=== PATIENT | female | born 1965 | race American Indian/Alaskan Native ===

== ENCOUNTER 2017-01-02 14:08 | Emergency (ER) | payer OTHER ==
--- NOTE | 2017-01-02 16:10 | XRay Report ---
Right knee 2 views. Findings: Knee pain after fall. Findings: There is no evidence of fracture or other acute findings. There is mild narrowing of the joint space. Bony mineralization is normal. Impression: Mild osteoarthritis with no acute findings.
--- NOTE | 2017-01-02 18:28 | Emergency Department Report ---
ED Extremity Problem HPI - General Chief complaint: Fall Stated complaint: FELL/RT KNEE PAIN Time Seen by Provider: 01/02/17 18:14 Source: patient Mode of arrival: Wheelchair Limitations: No Limitations - History of Present Illness Initial comments: PT c/o R knee pain sp fall at work. 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 PT states her point of impact was the R knee. PT states she had R knee surgery for "torn ligament" on 10-11-16. PT stats she has not ambulated since fall. PT denies any other injuries from fall MD Complaint: joint paint -: Sudden, hour(s) Time: 13:15 Location: right, knee Severity scale (0 -10): 10 Consistency: constant Improves with: nothing (no improvement with rest or elevated - no medication taken ) Worsens with: weight bearing, walking, palpation Associated Symptoms: denies other symptoms - Related Data Previous Rx's Medication Instructions Recorded Last Taken Type HYDROcodone/APAP 5-325 [[place] 1 each PO Q6HR PRN #10 tablet 01/02/17 Unknown Rx 5/325] Ibuprofen [Motrin] 600 mg PO Q8H PRN #15 tablet 01/02/17 Unknown Rx Allergies Allergy/AdvReac Type Severity Reaction Status Date / Time No Known Allergies Allergy Verified 06/18/14 22:26 ED Review of Systems ROS: Stated complaint: FELL/RT KNEE PAIN Other details as noted in HPI Comment: All other systems reviewed and negative Cardiovascular: denies: chest pain Gastrointestinal: denies: abdominal pain Musculoskeletal: as per HPI Neurological: abnormal gait (due to R knee pain ). denies: headache ED Past Medical Hx - Past Medical History Previous Medical History?: Yes Hx Hypertension: No Hx CVA: No Hx Heart Attack/AMI: No Hx Congestive Heart Failure: No Hx Diabetes: No Hx Deep Vein Thrombosis: No Hx Pulmonary Embolism: No Hx GERD: No Hx Liver Disease: No Hx Renal Disease: No Hx Sickle Cell Disease: No Hx Arthritis: No Hx Headaches / Migraines: No Hx Seizures: No Hx Kidney Stones: No Hx Psychiatric Treatment: No Hx Asthma: No Hx COPD: No Hx Tuberculosis: No Hx Dementia: No Hx HIV: No Additional medical history: Right knee pain - Surgical History Past Surgical History?: Yes Hx Coronary Stent: No Hx Open Heart Surgery: No Hx Pacemaker: No Hx Internal Defibrillator: No Hx Cholecystectomy: No Hx Appendectomy: No Hx Breast Surgery: No Additional Surgical History: hysterectomy, Right knee arthroscopy - Social History Smoking Status: Never Smoker Substance Use Type: Alcohol - Medications Home Medications: Home Medications Medication Instructions Recorded Confirmed Last Taken Type HYDROcodone/APAP 5-325 [[place] 1 each PO Q6HR PRN #10 tablet 01/02/17 Unknown Rx 5/325] Ibuprofen [Motrin] 600 mg PO Q8H PRN #15 tablet 01/02/17 Unknown Rx ED Physical Exam - General Limitations: No Limitations General appearance: alert, in no apparent distress, obese - Head Head exam: Present: atraumatic, normocephalic - Eye Eye exam: Present: normal appearance, EOMI. Absent: conjunctival injection - ENT ENT exam: Present: normal exam - Neck Neck exam: Present: normal inspection, full ROM - Respiratory Respiratory exam: Absent: respiratory distress, accessory muscle use - Cardiovascular Cardiovascular Exam: Present: regular rate, normal rhythm - GI/Abdominal GI/Abdominal exam: Present: soft, other (obese ). Absent: tenderness - Extremities Exam Extremities exam: Present: normal inspection, full ROM, tenderness, normal capillary refill. Absent: pedal edema, calf tenderness - Expanded Lower Extremity Exam Right Knee exam: Present: normal inspection (3 scars to ant R knee, no signs of secondary infection), full ROM, tenderness (ant knee ), crepidus. Absent: swelling, abrasion, laceration, ecchymosis Ankle exam: Present: normal inspection. Absent: tenderness, swelling - Back Exam Back exam: Present: normal inspection, full ROM - Neurological Exam Neurological exam: Present: alert, oriented X3 - Psychiatric Psychiatric exam: Present: normal affect, normal mood - Skin Skin exam: Present: warm, dry, intact, normal color ED Course Vital Signs 01/02/17 15:01 Temperature 97.5 F L Pulse Rate 64 Respiratory 20 Rate Blood Pressure 159/85 O2 Sat by Pulse 100 Oximetry - Reevaluation(s) Reevaluation #1: 01/02/17 18:33 PT is aware of XR result. PT aware she will need to follow up with PCP for bp recheck. PT has no questions at this time. Reevaluation #2: 01/02/17 19:33 PT resting in stretcher. PT in R knee immobilizer. PT NVI - Pulse Oximetry Interpretation Digit-Finger Initial Pulse Oximetry Readin Actions Taken: none ED Medical Decision Making - Radiology Data Radiology results: report reviewed R knee XR- Mild OA, NAP - Differential Diagnosis fracture, contusion, strain Critical care attestation.: If time is entered above; I have spent that time in minutes in the direct care of this critically ill patient, excluding procedure time. ED Disposition Clinical Impression: Elevated blood pressure Fall from slipping on slippery surface Qualifiers: Encounter type: initial encounter Qualified Code(s): W01.0XXA - Fall on same level from slipping, tripping and stumbling without subsequent striking against object, initial encounter Right knee pain Qualifiers: Chronicity: acute Qualified Code(s): M25.561 - Pain in right knee Disposition: DISCHARGED TO HOME OR SELFCARE Is pt being admited?: No Does the pt Need Aspirin: No Condition: Stable Instructions: Knee Sprain (ED), Knee Pain (ED), RICE Therapy (ED), Knee Immobilizer (ED) Additional Instructions: No driving or ETOH after [place] Follow up with PMD for repeat XR Prescriptions: HYDROcodone/APAP 5-325 [[place] 5/325] 1 each PO Q6HR PRN #10 tablet PRN Reason: Pain Ibuprofen [Motrin] 600 mg PO Q8H PRN #15 tablet PRN Reason: Pain Referrals: PRIMARY CARE, [Primary Care Provider] - 3-5 Days TRISTEN VANCE MD [Staff Physician] - 3-5 Days OZZY ANNA MD [Staff Physician] - 3-5 Days [facility] [Outside] - 3-5 Days [facility] [Outside] - 3-5 Days Forms: Work/School Release Form(ED) Time of Disposition: 18:32
[2017-01-02] MEDS ORDERED: MOTRIN PO ONE (18:31)
[2017-01-02] MEDS ORDERED: NORCO 5/325 PO ONE (18:31)
[2017-01-02 19:38] VITALS: BP 142/84
== END 2017-01-02 19:36 | disposition home or self-care (01) ==
LOC: ED 14:08
DX: M25.561 Pain in right knee (principal); W01.0XXA Fall on same level from slipping, tripping and stumbling without subsequent striking against object, initial encounter; Y93.89 Activity, other specified; Y99.8 Other external cause status; Y92.89 Other specified places as the place of occurrence of the external cause

== ENCOUNTER 2018-04-24 16:52 | Observation (INO) | payer OTHER ==
[2018-04-24] MEDS ORDERED: NITROSTAT SL ONE (17:05)
[2018-04-24] MEDS ORDERED: NACL 0.9% 500 ML 500 ML IV ONE (17:06)
[2018-04-24] MEDS ORDERED: SUBLIMAZE IV ONE (17:06)
--- NOTE | 2018-04-24 17:07 | Emergency Department Report ---
<VIRGINIA JEAN - Last Filed: 04/24/18 20:00> ED Chest Pain HPI - General Chief Complaint: Chest Pain Stated Complaint: CHEST PAIN Time Seen by Provider: 04/24/18 16:57 Source: patient, EMS (ems notes not available at time of chart dictation), RN notes reviewed Mode of arrival: Stretcher Limitations: Physical Limitation - History of Present Illness Initial Comments: This is a 52-year-old female who is not known to this provider previously. Her primary care doctor is Dr. Mejia reports a past medical history of hypertension. She presents to the ER with a complaint of left-sided chest pain that radiates to the back. It is associated with syncope. Currently, her chest pain is improved. She denies headache, neck pain, abdominal pain, leg pain, leg swelling, hematemesis, bright red blood per rectum. She denies DVT, pulmonary embolus risk factors. MD Complaint: chest pain -: Sudden Onset: during rest Pain Location: left chest Pain Radiation: back Severity: moderate Quality: aching Consistency: intermittent Improves With: nothing Worsens With: nothing Other Symptoms: syncope Aspirin use within the Past 7 Days: (1) Yes - Related Data On Oral Contraceptives: No Home Medications Medication Instructions Recorded Confirmed Last Taken Levothyroxine [Synthroid] 100 mcg PO QAM 04/24/18 04/24/18 04/24/18 Meloxicam 15 mg PO DAILY PRN 04/24/18 04/24/18 04/24/18 Allergies Allergy/AdvReac Type Severity Reaction Status Date / Time No Known Allergies Allergy Verified 06/18/14 22:26 Heart Score - HEART Score History: Moderately suspicious EKG: Non-specific Age: 45-65 Risk factors: 1-2 risk factors Troponin: < normal limit HEART Score: 4 - Critical Actions Critical Actions: 4-6 pts:12-16.6% risk of adverse cardiac event. Should be admitted ED Review of Systems ROS: Stated complaint: CHEST PAIN Other details as noted in HPI Comment: All other systems reviewed and negative Constitutional: malaise Eyes: denies: vision change ENT: denies: epistaxis Respiratory: denies: cough Cardiovascular: chest pain, syncope Gastrointestinal: denies: abdominal pain Psychiatric: anxiety ED Past Medical Hx - Past Medical History Hx Hypertension: No Hx CVA: No Hx Heart Attack/AMI: No Hx Congestive Heart Failure: No Hx Diabetes: No Hx Deep Vein Thrombosis: No Hx Pulmonary Embolism: No Hx GERD: No Hx Liver Disease: No Hx Renal Disease: No Hx Sickle Cell Disease: No Hx Arthritis: No Hx Headaches / Migraines: No Hx Seizures: No Hx Kidney Stones: No Hx Psychiatric Treatment: No Hx Asthma: No Hx COPD: No Hx Tuberculosis: No Hx Dementia: No Hx HIV: No Additional medical history: Right knee pain - Surgical History Hx Coronary Stent: No Hx Open Heart Surgery: No Hx Pacemaker: No Hx Internal Defibrillator: No Hx Cholecystectomy: No Hx Appendectomy: No Hx Breast Surgery: No Additional Surgical History: hysterectomy, Right knee arthroscopy - Social History Smoking Status: Never Smoker Substance Use Type: Alcohol - Medications Home Medications: Home Medications Medication Instructions Recorded Confirmed Last Taken Type Levothyroxine [Synthroid] 100 mcg PO QAM 04/24/18 04/24/18 04/24/18 History Meloxicam 15 mg PO DAILY PRN 04/24/18 04/24/18 04/24/18 History ED Physical Exam - General General appearance: alert, in no apparent distress, obese - Head Head exam: Present: atraumatic, normocephalic - Eye Eye exam: Present: normal appearance, EOMI. Absent: nystagmus - ENT ENT exam: Present: normal exam, normal orophraynx, mucous membranes moist, normal external ear exam - Neck Neck exam: Present: normal inspection - Respiratory Respiratory exam: Present: normal lung sounds bilaterally. Absent: respiratory distress - Cardiovascular Cardiovascular Exam: Present: regular rate, normal rhythm, normal heart sounds. Absent: bradycardia, tachycardia, irregular rhythm, systolic murmur, diastolic murmur, rubs, gallop - GI/Abdominal GI/Abdominal exam: Present: soft. Absent: distended, tenderness, guarding, rebound, rigid, pulsatile mass - Extremities Exam Extremities exam: Present: normal inspection, full ROM, normal capillary refill , other (2+ pulses noted in the bilateral upper, lower extremities. Compartments soft. No long bony tenderness. The pelvis is stable.). Absent: tenderness, pedal edema, joint swelling, calf tenderness - Back Exam Back exam: Present: normal inspection, full ROM. Absent: tenderness, CVA tenderness (R), paraspinal tenderness, vertebral tenderness - Neurological Exam Neurological exam: Present: alert, oriented X3, CN II-XII intact, other ( Extraocular movements intact. Tongue midline. No facial droop. Facial sensation intact to light touch in the V1, V2, V3 distribution bilaterally. 5 and 5 strength in 4 extremities.. Sensation is intact to light touch in 4 extremities.). Absent: motor sensory deficit - Psychiatric Psychiatric exam: Present: anxious - Skin Skin exam: Present: warm, dry, intact, normal color. Absent: rash ED Course Vital Signs 04/24/18 04/24/18 04/24/18 17:07 19:15 20:00 Temperature 98 F 98.3 F Pulse Rate 68 60 58 L Respiratory 17 14 13 Rate Blood Pressure 170/92 157/83 Blood Pressure 141/72 [Right] O2 Sat by Pulse 97 98 Oximetry 04/24/18 21:00 Temperature Pulse Rate 53 L Respiratory 11 L Rate Blood Pressure 136/73 Blood Pressure [Right] O2 Sat by Pulse Oximetry - Reevaluation(s) Reevaluation #1: 04/24/18 18:54 Differential diagnosis, including but not limited to: Intracranial hemorrhage, pulmonary embolus, dissection, acute coronary syndrome, arrhythmia, electrolyte derangement, structural cardiac disease Assessment and plan: 52-year-old female, she is clinically sober, with an NIH score of 0, with reported chest pain and syncope. As per verbal report from the nurse had an initial prehospital blood pressure in the 200s. She is currently in the 170s. The patient has equal pulses in the bilateral upper, lower extremities. Aortic disease is unlikely. Her negative d-dimer is appreciated, but given her clinical presentation of reported chest pain and syncope, I do not think the patient is suitable to be risk stratified by negative d-dimer by itself, and therefore we will obtain a CT scan of the chest. As we have not excluded intracranial hemorrhage, the patient is not safe for suitable for empiric systemic anticoagulation at this time. The patient will be admitted to the hospital after her initial diagnostics are back. Reevaluation #2: 04/24/18 20:[address] Caban to follow up on cta chest and ct head. he will contact hospitalist to admit. would give aspirin if ct head negative VIANNEY score - Vianney Score Age > 65: (0) No Aspirin use within the Past 7 Days: (1) Yes 3 or more CAD Risk Factors: (0) No 2 or more Angina events in past 24 hrs: (0) No Known CAD with more than 50% Stenosis: (0) No Elevated Cardiac Markers: (0) No ST Deviation Greater than 0.5mm: (0) No VIANNEY Score: 1 ED Medical Decision Making - Lab Data Result diagrams: 04/24/18 17:09 04/24/18 17:09 Vital Signs 04/24/18 17:07 Temperature 98 F Pulse Rate 68 Respiratory 17 Rate Blood Pressure 170/92 O2 Sat by Pulse 97 Oximetry Lab Results 04/24/18 04/24/18 04/24/18 Range/Units 17:09 17:09 17:09 WBC 5.5 (4.5-11.0) K/mm3 RBC 4.02 (3.65-5.03) M/mm3 Hgb 12.6 (10.1-14.3) gm/dl Hct 37.8 (30.3-42.9) % MCV 94 (79-97) fl MCH 31 (28-32) pg MCHC 33 (30-34) % RDW 12.4 L (13.2-15.2) % Plt Count 154 (140-440) K/mm3 Lymph % (Auto) 36.7 H (13.4-35.0) % Mccreary % (Auto) 6.6 (0.0-7.3) % Eos % (Auto) 2.2 (0.0-4.3) % Baso % (Auto) 0.8 (0.0-1.8) % Lymph # 2.0 (1.2-5.4) K/mm3 Mccreary # 0.4 (0.0-0.8) K/mm3 Eos # 0.1 (0.0-0.4) K/mm3 Baso # 0.0 (0.0-0.1) K/mm3 Seg Neutrophils % 53.7 (40.0-70.0) % Seg Neutrophils # 2.9 (1.8-7.7) K/mm3 PT 13.2 (12.2-14.9) Sec. INR 0.95 (0.87-1.13) APTT 28.1 (24.2-36.6) Sec. D-Dimer 146.27 (0-234) ng/mlDDU Sodium 140 (137-145) mmol/L Potassium 3.4 L (3.6-5.0) mmol/L Chloride 103.8 (98-107) mmol/L Carbon Dioxide 25 (22-30) mmol/L Anion Gap 15 mmol/L BUN 14 (7-17) mg/dL Creatinine 0.8 (0.7-1.2) mg/dL Estimated GFR > 60 ml/min BUN/Creatinine Ratio 18 % Glucose 130 H (65-100) mg/dL Calcium 8.8 (8.4-10.2) mg/dL Magnesium (1.7-2.3) mg/dL Total Bilirubin 0.30 (0.1-1.2) mg/dL AST 20 (5-40) units/L ALT 16 (7-56) units/L Alkaline Phosphatase 57 (35-129) units/L Troponin T < 0.010 (0.00-0.029) ng/mL Total Protein 7.1 (6.3-8.2) g/dL Albumin 3.8 L (3.9-5) g/dL Albumin/Globulin Ratio 1.2 % TSH (0.270-4.200) mlU/mL 04/24/18 04/24/18 Range/Units 17:09 17:09 WBC (4.5-11.0) K/mm3 RBC (3.65-5.03) M/mm3 Hgb (10.1-14.3) gm/dl Hct (30.3-42.9) % MCV (79-97) fl MCH (28-32) pg MCHC (30-34) % RDW (13.2-15.2) % Plt Count (140-440) K/mm3 Lymph % (Auto) (13.4-35.0) % Mccreary % (Auto) (0.0-7.3) % Eos % (Auto) (0.0-4.3) % Baso % (Auto) (0.0-1.8) % Lymph # (1.2-5.4) K/mm3 Mccreary # (0.0-0.8) K/mm3 Eos # (0.0-0.4) K/mm3 Baso # (0.0-0.1) K/mm3 Seg Neutrophils % (40.0-70.0) % Seg Neutrophils # (1.8-7.7) K/mm3 PT (12.2-14.9) Sec. INR (0.87-1.13) APTT (24.2-36.6) Sec. D-Dimer (0-234) ng/mlDDU Sodium (137-145) mmol/L Potassium (3.6-5.0) mmol/L Chloride (98-107) mmol/L Carbon Dioxide (22-30) mmol/L Anion Gap mmol/L BUN (7-17) mg/dL Creatinine (0.7-1.2) mg/dL Estimated GFR ml/min BUN/Creatinine Ratio % Glucose (65-100) mg/dL Calcium (8.4-10.2) mg/dL Magnesium 1.70 (1.7-2.3) mg/dL Total Bilirubin (0.1-1.2) mg/dL AST (5-40) units/L ALT (7-56) units/L Alkaline Phosphatase (35-129) units/L Troponin T (0.00-0.029) ng/mL Total Protein (6.3-8.2) g/dL Albumin (3.9-5) g/dL Albumin/Globulin Ratio % TSH 4.790 H (0.270-4.200) mlU/mL - EKG Data -: EKG Interpreted by Me EKG shows normal: sinus rhythm - EKG Data When compared to previous EKG there are: previous EKG unavailable 04/24/18 18:53 Sinus, 63 bpm, high left ventricular voltage/left ventricular hypertrophy, low voltage in the lateral leads, abnormal EKG, not a stemi, no prior for comparison. - Radiology Data Radiology results: image reviewed interpreted by me: X-ray of the chest, interpreted by me, no acute disease, cardiaomegaly. Critical care attestation.: If time is entered above; I have spent that time in minutes in the direct care of this critically ill patient, excluding procedure time. ED Disposition Clinical Impression: Syncope, Chest pain Disposition: OP ADMIT IP TO THIS HOSP Is pt being admited?: Yes Condition: Good Instructions: Chest Pain (ED), Syncope (ED) Referrals: PRIMARY CARE, [Primary Care Provider] - 3-5 Days <GWENDOLYN CABAN - Last Filed: 04/24/18 21:38> ED Medical Decision Making - Lab Data Result diagrams: 04/24/18 17:09 08/15/18 17:09 - Medical Decision Making I received this patient in sign out from Dr. Jean to follow up on the CT imaging. They are unremarkable for acute emergent pathology. Pt will be admitted for chest pain/syncope work up. ED Disposition Is pt being admited?: Yes Does the pt Need Aspirin: No
[2018-04-24 17:33] LABS: Basophils % (Auto) 0.8 % (0.0-1.8); Eosinophils # (Auto) 0.1 K/mm3 (0.0-0.4); Eosinophils % (Auto) 2.2 % (0.0-4.3); Hematocrit 37.8 % (30.3-42.9); Hemoglobin 12.6 gm/dl (10.1-14.3); Lymphocytes % (Auto) 36.7 % (13.4-35.0); Mean Corpuscular HGB Conc 33 % (30-34); Mean Corpuscular Hemoglobin 31 pg (28-32); Mean Corpuscular Volume 94 fl (79-97); Monocytes # (Auto) 0.4 K/mm3 (0.0-0.8); Monocytes % (Auto) 6.6 % (0.0-7.3); Platelet Count 154 K/mm3 (140-440); Red Blood Count 4.02 M/mm3 (3.65-5.03); Red Cell Distribution Width 12.4 % (13.2-15.2)
[2018-04-24 17:43] LABS: INR 0.95 (0.87-1.13); Partial Thromboplastin Time 28.1 Sec. (24.2-36.6)
[2018-04-24 17:57] LABS: Alanine Aminotransferase 16 units/L (7-56); Albumin 3.8 g/dL (3.9-5); BUN/Creatinine Ratio 18; Blood Urea Nitrogen 14 mg/dL (7-17); Calcium 8.8 mg/dL (8.4-10.2); Hemolysis Index 5
--- NOTE | 2018-04-24 20:07 | Cat Scan Report ---
FINAL REPORT EXAM: CT HEAD/BRAIN WO CON HISTORY: syncope TECHNIQUE: Axial noncontrast CT images of the brain were performed. Total exam DLP 920.48 mGy-cm Comparison: None FINDINGS: Mild cortical atrophy. Patchy periventricular white matter foci of low signal density most compatible with small vessel ischemic disease including in the anterior limb left internal capsule. Normal gonzalez-white differentiation. No midline shift or mass effect. Dysconjugate gaze. Right maxillary sinus mucosal thickening. Air bubbles are present along the superficial right globe. Orbital cones and apices are unremarkable. IMPRESSION: Cortical atrophy. Mild central atrophy. No acute transcortical infarct, bleed, or mass identified. Dysconjugate gaze. Air bubbles along the superficial globes, right greater than left. No intraconal gas. Mild right maxillary sinus mucosal thickening incompletely imaged.
--- NOTE | 2018-04-24 20:24 | XRay Report ---
FINAL REPORT EXAM: XR CHEST ROUTINE 2V HISTORY: Chest Pain TECHNIQUE: Two views of the chest Comparison: 01/14/2016 FINDINGS: Heart size is upper limits normal with mild left ventricular configuration. No pneumothorax. No focal infiltrate. Imaged axial skeleton is unremarkable. IMPRESSION: No acute cardiopulmonary disease.
--- NOTE | 2018-04-24 20:34 | Cat Scan Report ---
FINAL REPORT EXAM: CT ANGIO CHEST HISTORY: cp syncope TECHNIQUE: Enhanced CT of the chest at 1.25 mm axial intervals following a pulmonary embolism protocol. Coronal and sagittal imaging were also obtained. Coronal oblique MIP projections were obtained. Contrast: 100 ml of Omnipaque 350 given IV. PRIORS: None. FINDINGS: There is no evidence for pulmonary embolism in the main pulmonary artery, right and left pulmonary arteries or their major distributions. However, CT does not exclude distal pulmonary emboli. Otherwise, the lung parenchyma are expanded and clear with no evidence for parenchymal nodules, infiltrates, congestion, or pleural effusion. There is no evidence for mediastinal, hilar, or axillary adenopathy. Cardiovascular structures are within normal limits. No evidence for ventricular chamber enlargement is seen. Images through the lung bases include the upper abdomen which show no abnormalities of the visualized abdominal viscera. Bony structures demonstrate no focal abnormalities. There is a partially calcified 9 mm nodule in the central right breast, probably a fibroadenoma. IMPRESSION: No evidence for pulmonary embolism.
[2018-04-24] MEDS ORDERED: TYLENOL PO PRN (22:36)
[2018-04-24] MEDS ORDERED: MORPHINE IV PRN (22:37)
[2018-04-24] MEDS ORDERED: NITROSTAT SL PRN (22:38)
[2018-04-24] MEDS ORDERED: ZOFRAN IV PRN (22:39)
[2018-04-24] MEDS ORDERED: K-DUR PO ONE ×2 (22:40→23:38)
[2018-04-25] MEDS: NITRO-BID 2% TP SCH ×4 (01:53→14:31)
[2018-04-25 01:54] LABS: Creatine Kinase MB 3.9 ng/mL (0.0-4.0)
[2018-04-25] MEDS ORDERED: SYNTHROID PO SCH (06:00)
[2018-04-25 06:29] LABS: Creatine Kinase MB 3.6 ng/mL (0.0-4.0)
[2018-04-25 08:06] LABS: BUN/Creatinine Ratio 25; Blood Urea Nitrogen 15 mg/dL (7-17); Calcium 8.4 mg/dL (8.4-10.2); Hemolysis Index 3
--- NOTE | 2018-04-25 08:44 | History and Physical Report ---
CHIEF COMPLAINT: Chest pain. HISTORY OF PRESENTING ILLNESS: The patient is 52-year-old female who presented with left-sided chest pain radiating to the back and the patient say that there was associated history of syncope after the chest pain started. The patient denied history of shortness of breath and denied history of nausea, vomiting or diaphoresis and say that the pain is not affected by movement or breathing. Pain started while the patient was rested and she say that she got up to go to the bathroom, she passed out. There was no history of fever or chills. PAST MEDICAL HISTORY: Right knee pain. Also the patient has past medical history of hypothyroidism. PAST SURGICAL HISTORY: Pertinent for hysterectomy, right knee arthroscopy. FAMILY HISTORY: Pertinent for heart disease in the sister. There is also family history of diabetes mellitus and hypertension. SOCIAL HISTORY: The patient does not smoke, drinks alcohol and does not use illicit drugs. MEDICATIONS: The patient is on levothyroxine 100 ____ by mouth every morning. The patient is also on meloxicam 15 mg by mouth daily. ALLERGIES: There are no known drug allergies. REVIEW OF SYSTEMS: CONSTITUTIONAL: There is no fever, no chills, no diaphoresis. HEENT: There is no headache or sore throat. CARDIOVASCULAR SYSTEM: There is chest pain, but no orthopnea. RESPIRATORY SYSTEM: There is no shortness of breath and there is no cough. GASTROINTESTINAL SYSTEM: There is no nausea, no vomiting. No abdominal pain, diarrhea or constipation. NEUROLOGICAL SYSTEM: There is no numbness, no dizziness. Syncopal attack noted. No altered mental status. MUSCULOSKELETAL SYSTEM: There is no joint pain or swelling. DERMATOLOGICAL SYSTEM: There is no skin rash or itching. GENITOURINARY SYSTEM: There is no dysuria, hematuria or flank pain. Rest of system review is normal. PHYSICAL EXAMINATION: GENERAL: At the time of exam, the patient was found to be alert, oriented x 3 and not in acute distress. VITAL SIGNS: At the time of initial presentation show a temperature of 98 degrees Fahrenheit, pulse of 68, respiration 17, blood pressure 170/92, O2 sat of 97% on room air. HEENT: Shows pupils to be equal, round, reactive to light and accommodating. Extraocular muscles are intact. NECK: Neck is supple with no JVD or carotid bruit. CARDIOVASCULAR SYSTEM: Show normal first and second heart sounds with no gallops or murmurs. RESPIRATORY SYSTEM: Show good air entry on both sides of the lungs with no abnormal breath sounds. GASTROINTESTINAL SYSTEM: Show abdomen to be full, soft, nontender with no organomegaly or rigidity. NEUROLOGICAL: Neuro exam shows no focal deficit. MUSCULOSKELETAL SYSTEM: Show no joint swelling or tenderness. DERMATOLOGICAL SYSTEM: Show no skin rash. GENITOURINARY SYSTEM: Showing no costovertebral angle tenderness. PERTINENT LABORATORY DATA AND IMAGING STUDIES: The patient had CT of head without contrast done that shows cortical atrophy with mild central atrophy with no acute signs of cortical infarct, bleed or mass identified. There is finding of no bleed or mass in the brain, but there is finding of air bubbles along the superficial grooves with the right greater than left and no intracoronary gas found. There is mild right maxillary sinus mucosal thickening, incompletely imaged according to the radiologist. The patient had chest x-ray done that shows no acute cardiopulmonary lesion and chest CT angiogram shows no evidence of pulmonary embolism. The patient's lab results show CBC which is unremarkable except for CBC differential that shows high lymphocyte count of 36.7%. Coagulation studies were unremarkable. The patient's chemistry shows slight decrease in potassium of 3.4. Rest of chemistry is normal except for elevated TSH level of 4.7 consistent with the patient's hypothyroidism, treated with levothyroxine. The patient's troponin level is unremarkable and albumin level is slightly low with a value of 3.8. DIAGNOSES: 1. Chest pain. 2. Syncopal attack. PLAN: 1. The patient will be admitted to telemetry. 2. The patient will have cardiac enzymes involving troponin, total CK and CK-MB checked q. 6 hours x 2 more levels. 3. The patient will have 2D echo done this morning because of syncopal attack. 4. The patient will be n.p.o. and will have Lexiscan stress test done this morning to rule out myocardial infarction. 5. The patient will be on aspirin 325 mg by mouth daily and will be on heparin 5000 units subQ q. 12 hours. 6. The patient will be on Tylenol 650 mg by mouth every 4 hours as needed for headache and will be on nitro paste half inch to anterior chest wall q.i.d. as well as be on nitroglycerin sublingual 0.4 mg q. 5 minutes for breakthrough chest pain. 7. The patient will be on morphine 2 mg IV every 5 minutes as needed for pain and IV Zofran 4 mg every 8 hours for nausea and vomiting. 8. The patient will have 20 mEq of potassium by mouth one time for treatment of hypokalemia. 9. The patient will have basic metabolic panel checked this morning to monitor the potassium level. 10. The patient will be on oxygen by nasal cannula, 2 liters per minute. JOB# [id number] OCN/NTS
[2018-04-25] MEDS ORDERED: LEXISCAN IV ONE ×2 (08:46→09:11)
[2018-04-25] MEDS ORDERED: HEPARIN SUB-Q SCH (10:00)
[2018-04-25] MEDS ORDERED: ASPIRIN PO SCH (10:00)
--- NOTE | 2018-04-25 13:05 | Treadmill Report ---
NUCLEAR PERFUSION STUDY REASON FOR STUDY: Chest pain. IMAGING PROTOCOL: Single isotope used documented single isotope protocol. IMAGING RESULTS: Normal cavity size from stress to rest. Normal distribution of radionuclide in the anterior, inferior, septal, lateral, mild decrease in the apical region seen both stress and rest with gated SPECT EF 57% with no wall motion abnormality. The patient infused Lexiscan with no EKG changes. SUMMARY: 1. Negative Lexiscan EKG. 2. No significant myocardial ischemia noted with normal left ventricular function, ejection fraction 55%. 3. Fixed apical defect prior to breast attenuation. JOB# [id number] RICH/SRINIVAS
--- NOTE | 2018-04-25 15:00 | Discharge Summary ---
Providers - Providers Date of Admission: 04/24/18 22:31 Date of discharge: 04/25/18 Attending physician: ROB ESPINOZA Primary care physician: [employer] Hospitalization Reason for admission: chest pain Condition: Good Pertinent studies: CTA chest; negative for PE CT head; no acute abnormality noted, cortical atrophy Exercise stress test; negative for reversible ischemia, fixed defect Ejection fraction 55% Hospital course: 52-year-old female patient with significant past medical history of hypothyroidism presented to the emergency room with left-sided chest pain Patient was initially evaluated admitted to the hospital symptomatically managed Subsequently underwent stress test which was negative for reversible ischemia, fixed defect, ejection fraction 55% Patient's symptoms significantly improved today's comfortable in bed no new complaints Patient's chest pain was probably secondary to gastroesophageal reflux disease Patient denies any chest pain or shortness of breath Vital signs reviewed Physical examination prior to discharge is unremarkable Patient advised to follow with primary care physician in one to 2 weeks Also advised should she have recurrent chest pain, to see transitional care liaison for further evaluation Patient verbalized understanding Counseled weight reduction when medically stable --Discharge diagnosis; --Atypical chest pain; probably noncardiac --Gastroesophageal reflux disease --Hypothyroidism --Obesity BMI 36.3 Disposition: DC-01 TO HOME OR SELFCARE Time spent for discharge: 32 min Core Measure Documentation - Palliative Care Palliative Care/ Comfort Measures: Not Applicable - Core Measures Any of the following diagnoses?: none Exam - Constitutional Vitals: Temp Pulse Resp BP Pulse Ox 98.3 F 60 18 168/88 99 04/25/18 12:00 04/25/18 12:19 04/25/18 12:19 04/25/18 12:19 04/25/18 12:19 General appearance: Present: no acute distress, well-nourished, obese - EENT Eyes: Present: PERRL, EOM intact - Neck Neck: Present: supple, normal ROM - Respiratory Respiratory effort: normal Respiratory: negative: diminished, rales, rhonchi, wheezing - Cardiovascular Rhythm: regular Heart Sounds: Present: S1 & S2 - Extremities Extremities: no ischemia, No edema - Abdominal General gastrointestinal: Present: soft, non-tender, non-distended, normal bowel sounds - Integumentary Integumentary: Present: clear, warm - Musculoskeletal Musculoskeletal: strength equal bilaterally - Psychiatric Psychiatric: appropriate mood/affect, cooperative - Neurologic Neurologic: CNII-XII intact, moves all extremities Plan Activity: no restrictions Diet: regular Additional Instructions: Diet modification and exercise as tolerated and weight reduction when medically stable. Chest pain or shortness of breath contact M.D. or go to emergency room. If you have recurrent chest pain you may need transitional care liaison evaluation Follow up with: PRIMARY CARE, [Primary Care Provider] - 3-5 Days
[2018-04-25 17:36] VITALS: BP 174/93
== END 2018-04-25 20:00 | disposition home or self-care (01) ==
LOC: ED 16:52 → 4A 22:31 → INTOOBSV 22:31
PROVIDERS: ADMIT Internal Medicine; ATTEND Internal Medicine
DX: R07.89 Other chest pain (principal); R55 Syncope and collapse; E03.9 Hypothyroidism, unspecified; I10 Essential (primary) hypertension; K21.9 Gastro-esophageal reflux disease without esophagitis; E66.9 Obesity, unspecified; Z68.36 Body mass index [BMI] 36.0-36.9, adult; Z82.49 Family history of ischemic heart disease and other diseases of the circulatory system
CPT/HCPCS: 36415; 70450; 71046; 71275; 78452; 80048; 80053; 82550; 82553; 83735; 84443; 84484; 85025; 85379; 85610; 85730; 93005; 93010; 93017; 93306; 96372; 96374; 99285; A9502; G0378; J1644; J2785; J3010; J7040; Q9967

== ENCOUNTER 2018-09-26 16:45 | Emergency (ER) | payer OTHER ==
[2018-09-26 17:19] VITALS: BP 168/82
--- NOTE | 2018-09-26 17:57 | Emergency Department Report ---
ED Lower Extremity HPI - General Chief Complaint: Extremity Problem,Nontraumatic Stated Complaint: RIGHT ANKLE PAIN Time Seen by Provider: 09/26/18 17:54 Source: patient, family Mode of arrival: Ambulatory Limitations: No Limitations - History of Present Illness MD Complaint: ankle injury, other (swelling to leg) Onset/Timin -: month(s) Injury: Leg: Right (swelling), Knee: Right (swollen and pain) Type of Injury: unknown Place: home Severity: severe Severity scale (0 -10): 9 Improves With: NSAID Worsens With: weight bearing, movement, palpation Context: other (she relates this to ankle injury in 2011 worst that she has had a cast complaints but the only kept her in a cast for 2 weeks.) Associated Symptoms: swelling, ambulatory. denies: snap/pop sensation, numbness, tingling, unable to bear weight, able to partially bear weight Treatments Prior to Arrival: NSAIDS - Related Data Home Medications Medication Instructions Recorded Confirmed Last Taken Levothyroxine [Synthroid] 100 mcg PO QAM 04/24/18 04/24/18 04/24/18 Meloxicam 15 mg PO DAILY PRN 04/24/18 04/24/18 04/24/18 Previous Rx's Medication Instructions Recorded Last Taken Type Dicyclomine [Bentyl] 10 mg PO TID PRN #15 capsule 04/25/18 Unknown Rx Pantoprazole [Protonix] 40 mg PO BID #14 tablet 04/25/18 Unknown Rx Ibuprofen [Motrin 800 MG tab] 800 mg PO Q8H PRN #12 tablet 09/26/18 Unknown Rx Allergies Allergy/AdvReac Type Severity Reaction Status Date / Time No Known Allergies Allergy Verified 09/26/18 17:14 ED Review of Systems ROS: Stated complaint: RIGHT ANKLE PAIN Other details as noted in HPI Constitutional: denies: chills, fever ENT: denies: ear pain, throat pain, dental pain, congestion Respiratory: denies: cough, shortness of breath, SOB with exertion, SOB at rest, stridor, wheezing Cardiovascular: denies: chest pain, palpitations, dyspnea on exertion, edema, syncope, paroxysmal nocturnal dyspnea Gastrointestinal: denies: abdominal pain, nausea, vomiting, diarrhea, constipat ion, hematemesis, hematochezia Genitourinary: denies: urgency, dysuria, hematuria Musculoskeletal: joint swelling, arthralgia. denies: back pain Skin: denies: rash Neurological: denies: headache, weakness, numbness, paresthesias, confusion, abnormal gait, vertigo ED Past Medical Hx - Past Medical History Previous Medical History?: Yes Hx Hypertension: No Hx CVA: No Hx Heart Attack/AMI: No Hx Congestive Heart Failure: No Hx Diabetes: No Hx Deep Vein Thrombosis: No Hx Pulmonary Embolism: No Hx GERD: No Hx Liver Disease: No Hx Renal Disease: No Hx Sickle Cell Disease: No Hx Arthritis: No Hx Headaches / Migraines: No Hx Seizures: No Hx Kidney Stones: No Hx Psychiatric Treatment: No Hx Asthma: No Hx COPD: No Hx Tuberculosis: No Hx Dementia: No Hx HIV: No Additional medical history: Right knee pain - Surgical History Past Surgical History?: Yes Hx Coronary Stent: No Hx Open Heart Surgery: No Hx Pacemaker: No Hx Internal Defibrillator: No Hx Cholecystectomy: No Hx Appendectomy: No Hx Breast Surgery: No Additional Surgical History: hysterectomy, Right knee arthroscopy - Family History Family history: hypertension - Social History Smoking Status: Never Smoker Substance Use Type: None - Medications Home Medications: Home Medications Medication Instructions Recorded Confirmed Last Taken Type Levothyroxine [Synthroid] 100 mcg PO QAM 04/24/18 04/24/18 04/24/18 History Meloxicam 15 mg PO DAILY PRN 04/24/18 04/24/18 04/24/18 History Dicyclomine [Bentyl] 10 mg PO TID PRN #15 capsule 04/25/18 Unknown Rx Pantoprazole [Protonix] 40 mg PO BID #14 tablet 04/25/18 Unknown Rx Ibuprofen [Motrin 800 MG tab] 800 mg PO Q8H PRN #12 tablet 09/26/18 Unknown Rx ED Physical Exam - General Limitations: No Limitations General appearance: alert, in no apparent distress - Head Head exam: Present: atraumatic, normocephalic, normal inspection, other (normal exam) - Eye Eye exam: Present: normal appearance, PERRL, EOMI Pupils: Present: normal accommodation - ENT ENT exam: Present: normal exam, mucous membranes moist - Neck Neck exam: Present: normal inspection, full ROM, other (no C-spine tenderness). Absent: tenderness, lymphadenopathy - Respiratory Respiratory exam: Present: normal lung sounds bilaterally. Absent: respiratory distress, chest wall tenderness - Cardiovascular Cardiovascular Exam: Present: regular rate, normal rhythm, normal heart sounds - GI/Abdominal GI/Abdominal exam: Present: soft, normal bowel sounds. Absent: distended, tenderness, guarding, rebound, rigid, organomegaly, mass, bruit, pulsatile mass, hernia - Extremities Exam Extremities exam: Present: normal inspection, full ROM (she reports pain with range of motion to right ankle but she has full range of motion.), tenderness (she reports tenderness to palpate to right ankle), normal capillary refill, joint swelling (right ankle), other (No cce. + 2 pulses in all extremities, no neurovascular compromise the patient has swelling to right leg and reports calf is tender with palpation.). Absent: pedal edema, calf tenderness - Expanded Lower Extremity Exam Right Hip exam: Present: normal inspection, full ROM, pelvic stability. Absent: tenderness, swelling, abrasion, laceration, ecchymosis, deformity, crepidus, dislocation, erythema, external rotation, internal rotation, shortening Upper Leg exam: Present: normal inspection, full ROM. Absent: tenderness, swelling, abrasion, laceration, ecchymosis, deformity, crepidus, dislocation, erythema Knee exam: Present: normal inspection, full ROM, full knee extension. Absent: tenderness, swelling, abrasion, laceration, ecchymosis, deformity, crepidus, dislocation, erythema, effusion, pain w/ pronation/supination, posterior draw sign, pain/laxity with valgus, pain/laxity with varus Lower Leg exam: Present: normal inspection, full ROM. Absent: tenderness, swelling, abrasion, laceration, ecchymosis, deformity, crepidus, dislocation, erythema, palpable cord, Lizzy's sign Ankle exam: Present: full ROM (full range of motion but reports pain), ten derness (tenderness palpated to right ankle), swelling. Absent: normal inspection, abrasion, laceration, ecchymosis, deformity, crepidus, dislocation, erythema Foot/Toe exam: Present: normal inspection, tenderness. Absent: swelling, abrasion, laceration, ecchymosis, deformity, crepidus, dislocation, erythema, amputation, puncture wound, foreign body, calcaneal tenderness, tenderness at base of 5th metatarsal, nail avulsion, subungual hematoma Neuro vascular tendon exam: Present: no vascular compromise, significant pain with passive ROM of distal joint. Absent: pulse deficit, abnormal cap refill, motor deficit, sensory deficit, tendon deficit, extremity cold to touch, pallor, abnormal 2-point discrimination, decreased fine/light touch, foot drop, peroneal nerve deficit Gait: Positive: observed and limited by pain - Back Exam Back exam: Present: normal inspection, full ROM, other (ambulates without any difficulties). Absent: tenderness, CVA tenderness (R), CVA tenderness (L), muscle spasm, paraspinal tenderness, vertebral tenderness, rash noted - Neurological Exam Neurological exam: Present: alert, oriented X3, normal gait - Psychiatric Psychiatric exam: Present: normal affect, normal mood - Skin Skin exam: Present: warm, dry, intact, normal color. Absent: rash ED Course Vital Signs 09/26/18 17:14 Temperature 98.6 F Pulse Rate 69 Respiratory 16 Rate Blood Pressure 168/82 O2 Sat by Pulse 99 Oximetry - Reevaluation(s) Reevaluation #1: 09/26/18 20:19 Given Motrin 800 mg by mouth and no cough R/treatment for 3 tablets by mouth in emergency room which relieved her pain. ED Lower Extremity MDM - Lab Data Result diagrams: 09/26/18 18:09 09/26/18 18:09 Lab Results 09/26/18 09/26/18 09/26/18 Range/Units 18:09 18:09 18:09 WBC 4.7 (4.5-11.0) K/mm3 RBC 4.00 (3.65-5.03) M/mm3 Hgb 12.7 (10.1-14.3) gm/dl Hct 38.4 (30.3-42.9) % MCV 96 (79-97) fl MCH 32 (28-32) pg MCHC 33 (30-34) % RDW 13.4 (13.2-15.2) % Plt Count 142 (140-440) K/mm3 Lymph % (Auto) 39.8 H (13.4-35.0) % [place] % (Auto) 7.9 H (0.0-7.3) % Eos % (Auto) 2.4 (0.0-4.3) % Baso % (Auto) 0.9 (0.0-1.8) % Lymph # 1.9 (1.2-5.4) K/mm3 [place] # 0.4 (0.0-0.8) K/mm3 Eos # 0.1 (0.0-0.4) K/mm3 Baso # 0.0 (0.0-0.1) K/mm3 Seg Neutrophils % 49.0 (40.0-70.0) % Seg Neutrophils # 2.3 (1.8-7.7) K/mm3 PT 13.7 (12.2-14.9) Sec. INR 1.01 (0.87-1.13) APTT 27.1 (24.2-36.6) Sec. Sodium 141 (137-145) mmol/L Potassium 4.0 (3.6-5.0) mmol/L Chloride 104.6 (98-107) mmol/L Carbon Dioxide 29 (22-30) mmol/L Anion Gap 11 mmol/L BUN 12 (7-17) mg/dL Creatinine 0.8 (0.7-1.2) mg/dL Estimated GFR > 60 ml/min BUN/Creatinine Ratio 15 % Glucose 113 H (65-100) mg/dL Calcium 9.1 (8.4-10.2) mg/dL - Radiology Data Radiology results: report reviewed Venous Doppler ultrasound right lower extremity and x-ray of right ankle that was dictated by radiologist's report reviewed by myself. Please see below for details Findings [facility] [address] [place] [address] XRay Report Signed Patient: CUATE SINGLETON MR#: [id number] : 1965 Acct:[id number] Age/Sex: 53 / F ADM Date: 09/26/18 Loc: ED Attending Dr: Ordering Physician: JAVAD MOYA Date of Service: 09/26/18 Procedure(s): XR ankle 3+V RT Accession Number(s): [id number] cc: JAVAD MOYA Fluoro Time In Minutes: FINAL REPORT EXAM: XR ANKLE 3+V RT HISTORY: right ankle pain and swelling. TECHNIQUE: AP, lateral, and oblique views of the right ankle PRIORS: None. FINDINGS: There is no evidence for acute fracture or dislocation. Generalized soft tissue swelling around the ankle is noted. No radiopaque foreign bodies are seen. The ankle mortise is intact. Bony mineralization is normal and joint spaces are maintained. Spurring off the posterior and plantar calcaneus is noted. There also small spurs off the dorsum of the tarsal bones IMPRESSION: No acute bony abnormality noted. Generalized soft tissue swelling around the ankle Transcribed By: MONICA Dictated By: SANDEEP LE MD Electronically Authenticated By: SANDEEP LE MD Signed Date/Time: 09/26/181932 DD/ 34 TD/TT: 09/26/181934 Findings [facility] [address] [place] [place] [address] Vascular Lab Report Signed Patient: CUATE SINGLETON MR#: [id number] : 1965 Acct:[id number] Age/Sex: 53 / F ADM Date: 09/26/18 Loc: ED Attending Dr: Ordering Physician: JAVAD MOYA Date of Service: 09/26/18 Procedure(s): VL venous duplex LE RT Accession Number(s): [id number] cc: JAVAD MOYA FINAL REPORT EXAM: VL VENOUS DUPLEX LE RT HISTORY: right lower extremity swelling and pain DOS for 2-3 weeks TECHNIQUE: Ultrasound examination of the right lower extremity was performed to evaluate for DVT. PRIORS: None. FINDINGS: The common femoral, greater saphenous, femoral, and popliteal veins are well visualized and easily compressible throughout with good color flow. Augmentation is normal at multiple levels from the popliteal to the common femoral vein levels. Examination of the calf veins demonstrate good visualization and compressibility of the peroneal and posterior tibial veins with good color flow throughout. IMPRESSION: No evidence for DVT identified in the right lower extremity. Transcribed By: MONICA Dictated By: SANDEEP LE MD Electronically Authenticated By: SANDEEP LE MD Signed Date/Time: 09/26/181930 DD/ 32 TD/TT: 09/26/181932 - Medical Decision Making This is a [id number] female here report that she has right ankle pain for one month. Thinking that is caused from her have an injury 2012 that they did not leave cast on long enough. She reports that she is having pain and swelling and also swelling to her right leg. Patient had Doppler studies of her right lower extremities which reveal no acute findings. She had x-ray of right ankle which reveals soft tissue swelling without any fracture dislocation. CBC, PT/PTT and BMP is stable. Discussed x-ray, ultrasound and lab work with patient and she voiced understanding. See procedure note for Benny wrap. Rice therapy explained. Patient received Motrin and [place] in emergency room for pain which relieved her pain. Vital signs are stable she is afebrile and discharged home in stable condition. She was given prescription for Motrin and to follow up with orthopedic doctor in 3-5 days - Differential Diagnosis DVT, fracture versus dislocation, sprain, MSK pain Critical care attestation.: If time is entered above; I have spent that time in minutes in the direct care of this critically ill patient, excluding procedure time. ED Disposition Clinical Impression: Leg edema, right Ankle sprain Qualifiers: Encounter type: sequela Involved ligament of ankle: unspecified ligament Laterality: right Qualified Code(s): S93.401S - Sprain of unspecified ligament of right ankle, sequela Disposition: DC-01 TO HOME OR SELFCARE Is pt being admited?: No Does the pt Need Aspirin: No Condition: Stable Instructions: Ankle Sprain (ED), RICE Therapy (ED), Leg Edema (ED) Additional Instructions: Follow-up with orthopedic doctor in 3-5 days for ankle swelling Take medication as prescribed See discharge instruction in Rice therapy Benny wrap to right ankle daily until seen by orthopedic doctor Prescriptions: Ibuprofen [Motrin 800 MG tab] 800 mg PO Q8H PRN #12 tablet PRN Reason: Pain Referrals: FREDDIE ROBLERO MD [Staff Physician] - 3-5 Days [facility] [Outside] - 3-5 Days Forms: Work/School Release Form(ED)
[2018-09-26] MEDS ORDERED: IBUPROFEN PO ONE (17:58)
[2018-09-26] MEDS ORDERED: NORCO 5/325 PO ONE (17:58)
[2018-09-26 18:40] LABS: Basophils % (Auto) 0.9 % (0.0-1.8); Eosinophils # (Auto) 0.1 K/mm3 (0.0-0.4); Eosinophils % (Auto) 2.4 % (0.0-4.3); Hematocrit 38.4 % (30.3-42.9); Hemoglobin 12.7 gm/dl (10.1-14.3); Lymphocytes # (Auto) 1.9 K/mm3 (1.2-5.4); Lymphocytes % (Auto) 39.8 % (13.4-35.0); Mean Corpuscular HGB Conc 33 % (30-34); Mean Corpuscular Volume 96 fl (79-97); Monocytes # (Auto) 0.4 K/mm3 (0.0-0.8); Monocytes % (Auto) 7.9 % (0.0-7.3); Platelet Count 142 K/mm3 (140-440); Red Cell Distribution Width 13.4 % (13.2-15.2)
[2018-09-26 18:48] LABS: INR 1.01 (0.87-1.13)
[2018-09-26 18:49] LABS: Partial Thromboplastin Time 27.1 Sec. (24.2-36.6)
[2018-09-26 19:16] LABS: BUN/Creatinine Ratio 15; Blood Urea Nitrogen 12 mg/dL (7-17); Calcium 9.1 mg/dL (8.4-10.2); Hemolysis Index 3
--- NOTE | 2018-09-26 19:31 | Vascular Lab Report ---
FINAL REPORT EXAM: VL VENOUS DUPLEX LE RT HISTORY: right lower extremity swelling and pain DOS for 2-3 weeks TECHNIQUE: Ultrasound examination of the right lower extremity was performed to evaluate for DVT. PRIORS: None. FINDINGS: The common femoral, greater saphenous, femoral, and popliteal veins are well visualized and easily co mpressible throughout with good color flow. Augmentation is normal at multiple levels from the poplit eal to the common femoral vein levels. Examination of the calf veins demonstrate good visualization and compressibility of the peroneal and posterior tibial veins with good color flow throughout. IMPRESSION: No evidence for DVT identified in the right lower extremity.
--- NOTE | 2018-09-26 19:33 | XRay Report ---
FINAL REPORT EXAM: XR ANKLE 3+V RT HISTORY: right ankle pain and swelling. TECHNIQUE: AP, lateral, and oblique views of the right ankle PRIORS: None. FINDINGS: There is no evidence for acute fracture or dislocation. Generalized soft tissue swelling around the a nkle is noted. No radiopaque foreign bodies are seen. The ankle mortise is intact. Bony mineralizat ion is normal and joint spaces are maintained. Spurring off the posterior and plantar calcaneus is no saad. There also small spurs off the dorsum of the tarsal bones IMPRESSION: No acute bony abnormality noted. Generalized soft tissue swelling around the ankle
== END 2018-09-26 20:40 | disposition home or self-care (01) ==
LOC: ED 16:45
DX: S93.401A Sprain of unspecified ligament of right ankle, initial encounter (principal); R60.0 Localized edema; Z90.710 Acquired absence of both cervix and uterus; X58.XXXA Exposure to other specified factors, initial encounter; Y93.89 Activity, other specified; Y92.009 Unspecified place in unspecified non-institutional (private) residence as the place of occurrence of the external cause; Y99.8 Other external cause status
CPT/HCPCS: 36415; 80048; 85025; 85610; 85730

== ENCOUNTER 2019-02-16 16:50 | Emergency (ER) | payer OTHER ==
[2019-02-16 16:59] VITALS: BP 174/82
--- NOTE | 2019-02-16 17:01 | Emergency Department Report ---
Blank Doc - Documentation Documentation: This is a 53-year-old female that presents with right ankle/foot pain and swel ling. Denies any injuries. This initial assessment/diagnostic orders/clinical plan/treatment(s) is/are subject to change based on patient's health status, clinical progression and re- assessment by fellow clinical providers in the ED. Further treatment and workup at subsequent clinical providers discretion. Patient/guardians urged not to elope from the ED as their condition may be serious if not clinically assessed and managed. Initial orders include: 1- Patient sent to [facility] for further evaluation and treatment 2- xray
--- NOTE | 2019-02-16 17:56 | XRay Report ---
PROCEDURE: XR ANKLE 3+V RT TECHNIQUE: Right ankle radiographs, AP, lateral, and oblique views. HISTORY: pain COMPARISONS: 09/26/2018 . FINDINGS: No fracture or dislocation. Ankle mortise and talar dome are intact. There is a 5 mm plantar calcanea l enthesophyte. IMPRESSION: No acute osseous abnormality is seen. . This document is electronically signed by Janeen Rossi MD., February 16 2019 05:54:01 PM ET
--- NOTE | 2019-02-16 17:56 | XRay Report ---
PROCEDURE: XR FOOT 3+V RT TECHNIQUE: Right foot radiographs, AP, lateral, and oblique views. HISTORY: pain COMPARISONS: None . FINDINGS: Midfoot osteoarthritic changes are present. No fracture or dislocation is seen. No radiopaque foreign body. IMPRESSION: Mild osteoarthritis. No acute fracture or dislocation . This document is electronically signed by Janeen Rossi MD., February 16 2019 05:54:53 PM ET
[2019-02-16] MEDS ORDERED: DELTASONE PO ONE (18:30)
[2019-02-16] MEDS ORDERED: TORADOL IM ONE (18:31)
--- NOTE | 2019-02-16 19:49 | Emergency Department Report ---
ED Lower Extremity HPI - General Chief Complaint: Extremity Injury, Lower Stated Complaint: RT FOOT/ANKLE SWOLLEN Time Seen by Provider: 02/16/19 16:59 Source: patient Mode of arrival: Ambulatory Limitations: No Limitations - History of Present Illness Initial Comments: Patient is a 53-year-old female with history of hypertension arthralgia who presents for right ankle and foot pain pt remains ambulatory but with 5/10 aching and sorness pt denies fall injury or trauma. Complaint: ankle injury, foot injury Onset/Timin -: month(s) Injury: Ankle: Right, Foot: Right Type of Injury: unknown Place: home Severity: moderate Severity scale (0 -10): 5 Improves With: rest Worsens With: weight bearing, movement, palpation Context: other (chronic arthralgia ) Associated Symptoms: denies: snap/pop sensation, swelling, numbness, tingling, unable to bear weight, able to partially bear weight - Related Data Home Medications Medication Instructions Recorded Confirmed Last Taken Levothyroxine [Synthroid] 100 mcg PO QAM 04/24/18 04/24/18 04/24/18 Meloxicam 15 mg PO DAILY PRN 04/24/18 04/24/18 04/24/18 Previous Rx's Medication Instructions Recorded Last Taken Type Dicyclomine [Bentyl] 10 mg PO TID PRN #15 capsule 04/25/18 Unknown Rx Pantoprazole [Protonix] 40 mg PO BID #14 tablet 04/25/18 Unknown Rx Ibuprofen [Motrin 800 MG tab] 800 mg PO Q8H PRN #12 tablet 09/26/18 Unknown Rx Naproxen [Naprosyn TAB] 500 mg PO BID PRN #30 tablet 02/16/19 Unknown Rx predniSONE [Deltasone] 40 mg PO QDAY 5 Days #10 tab 02/16/19 Unknown Rx Allergies Allergy/AdvReac Type Severity Reaction Status Date / Time No Known Allergies Allergy Verified 02/16/19 17:00 ED Review of Systems ROS: Stated complaint: RT FOOT/ANKLE SWOLLEN Other details as noted in HPI Constitutional: denies: chills, fever Eyes: denies: eye pain, eye discharge, vision change ENT: denies: ear pain, throat pain Respiratory: denies: cough, shortness of breath, wheezing Cardiovascular: denies: chest pain, palpitations Endocrine: no symptoms reported Gastrointestinal: denies: abdominal pain, nausea, diarrhea Genitourinary: denies: urgency, dysuria, discharge Musculoskeletal: arthralgia. denies: back pain, joint swelling Skin: denies: rash, lesions Neurological: denies: headache, weakness, paresthesias Psychiatric: denies: anxiety, depression Hematological/Lymphatic: denies: easy bleeding, easy bruising ED Past Medical Hx - Past Medical History Previous Medical History?: Yes Hx Hypertension: No Hx CVA: No Hx Heart Attack/AMI: No Hx Congestive Heart Failure: No Hx Diabetes: No Hx Deep Vein Thrombosis: No Hx Pulmonary Embolism: No Hx GERD: No Hx Liver Disease: No Hx Renal Disease: No Hx Sickle Cell Disease: No Hx Arthritis: No Hx Headaches / Migraines: No Hx Seizures: No Hx Kidney Stones: No Hx Psychiatric Treatment: No Hx Asthma: No Hx COPD: No Hx Tuberculosis: No Hx Dementia: No Hx HIV: No Additional medical history: Right knee pain - Surgical History Past Surgical History?: Yes Hx Coronary Stent: No Hx Open Heart Surgery: No Hx Pacemaker: No Hx Internal Defibrillator: No Hx Cholecystectomy: No Hx Appendectomy: No Hx Breast Surgery: No Additional Surgical History: hysterectomy, Right knee arthroscopy - Social History Smoking Status: Never Smoker Substance Use Type: Prescribed - Medications Home Medications: Home Medications Medication Instructions Recorded Confirmed Last Taken Type Levothyroxine [Synthroid] 100 mcg PO QAM 04/24/18 04/24/18 04/24/18 History Meloxicam 15 mg PO DAILY PRN 04/24/18 04/24/18 04/24/18 History Dicyclomine [Bentyl] 10 mg PO TID PRN #15 capsule 04/25/18 Unknown Rx Pantoprazole [Protonix] 40 mg PO BID #14 tablet 04/25/18 Unknown Rx Ibuprofen [Motrin 800 MG tab] 800 mg PO Q8H PRN #12 tablet 09/26/18 Unknown Rx Naproxen [Naprosyn TAB] 500 mg PO BID PRN #30 tablet 02/16/19 Unknown Rx predniSONE [Deltasone] 40 mg PO QDAY 5 Days #10 tab 02/16/19 Unknown Rx ED Physical Exam - General Limitations: No Limitations General appearance: alert, in no apparent distress - Head Head exam: Present: atraumatic, normocephalic - Eye Eye exam: Present: normal appearance, PERRL, EOMI Pupils: Present: normal accommodation - ENT ENT exam: Present: mucous membranes moist - Neck Neck exam: Present: normal inspection, full ROM. Absent: tenderness, meningismus, lymphadenopathy, thyromegaly - Respiratory Respiratory exam: Present: normal lung sounds bilaterally. Absent: respiratory distress, wheezes, rhonchi, chest wall tenderness - Cardiovascular Cardiovascular Exam: Present: regular rate, normal rhythm, normal heart sounds. Absent: systolic murmur, diastolic murmur, rubs, gallop - GI/Abdominal GI/Abdominal exam: Present: soft, normal bowel sounds. Absent: distended, tenderness, guarding, rebound, organomegaly, mass, bruit, pulsatile mass, hernia - Rectal Rectal exam: Present: deferred - Extremities Exam Extremities exam: Present: normal inspection, full ROM, tenderness ( right lateral ankle and foot pain ), normal capillary refill. Absent: pedal edema, joint swelling, calf tenderness - Expanded Lower Extremity Exam Right Ankle exam: Present: full ROM, tenderness (right lateral luo tenderness no ecchymosis no deformtiy distal pulse intact flexion and extenesion intact ), swelling. Absent: abrasion, laceration, ecchymosis, deformity, crepidus, dislocation, erythema, anterior draw sign Foot/Toe exam: Present: normal inspection, full ROM, tenderness, swelling. Absent: abrasion, laceration, ecchymosis, deformity, crepidus Neuro vascular tendon exam: Present: no vascular compromise. Absent: motor deficit, sensory deficit, tendon deficit, foot drop Gait: Positive: observed and limited by pain - Back Exam Back exam: Present: normal inspection, full ROM, tenderness, muscle spasm. Absent: CVA tenderness (R), CVA tenderness (L), rash noted - Neurological Exam Neurological exam: Present: alert, oriented X3, CN II-XII intact, normal gait, reflexes normal - Psychiatric Psychiatric exam: Present: normal affect, normal mood - Skin Skin exam: Present: warm, dry, intact, normal color. Absent: rash ED Course Vital Signs 02/16/19 16:54 Temperature 97.9 F Pulse Rate 68 Respiratory 18 Rate Blood Pressure 174/82 O2 Sat by Pulse 100 Oximetry ED Lower Extremity MDM - Radiology Data Radiology results: report reviewed, image reviewed (9) xrays neg for fracture - Medical Decision Making xrays neg for fracture , pain is improved pt is ambulatory with mild limp plan ortho shoe, naproxen , prednisone, follow up with pcp in 2-3 days pt verbalized agreement and understanding of discharge plan. pt with nad at this time. Critical care attestation.: If time is entered above; I have spent that time in minutes in the direct care of this critically ill patient, excluding procedure time. ED Disposition Clinical Impression: Ankle sprain Qualifiers: Encounter type: initial encounter Involved ligament of ankle: unspecified ligament Laterality: right Qualified Code(s): S93.401A - Sprain of unspecified ligament of right ankle, initial encounter Arthralgia Qualifiers: Joint pain location: ankle Laterality: right Qualified Code(s): M25.571 - Pain in right ankle and joints of right foot Disposition: TO HOME OR SELFCARE Is pt being admited?: No Does the pt Need Aspirin: No Condition: Stable Instructions: Osteoarthritis (ED) Prescriptions: predniSONE [Deltasone] 40 mg PO QDAY 5 Days #10 tab Naproxen [Naprosyn TAB] 500 mg PO BID PRN #30 tablet PRN Reason: pain Referrals: TAMMY LEAL MD [Primary Care Provider] - 3-5 Days Forms: Work/School Release Form(ED) Time of Disposition: 20:00
== END 2019-02-16 20:12 | disposition home or self-care (01) ==
LOC: ED 16:50
DX: S93.401A Sprain of unspecified ligament of right ankle, initial encounter (principal); Z90.710 Acquired absence of both cervix and uterus; Z79.899 Other long term (current) drug therapy; X58.XXXA Exposure to other specified factors, initial encounter; Y93.89 Activity, other specified; Y92.89 Other specified places as the place of occurrence of the external cause; Y99.8 Other external cause status
CPT/HCPCS: 73610; 73630; 96372; 99283; J1885; J7512

== ENCOUNTER 2019-07-22 09:04 | Emergency (ER) | payer OTHER ==
[2019-07-22 09:17] VITALS: BP 169/89
--- NOTE | 2019-07-22 11:15 | Emergency Department Report ---
ED Extremity Problem HPI - General Chief complaint: Extremity Injury, Lower Stated complaint: RT ANKLE/LFT FOOT PAIN Time Seen by Provider: 07/22/19 11:10 Source: patient Mode of arrival: Ambulatory Limitations: No Limitations - History of Present Illness Initial comments: 54-year-old female comes in with right ankle pain and left foot pain and swelling. Patient states that she's had right ankle pain for 7 years and it has flared up over the last 5 months. Patient was recently seen in 02/26/2019 for the same problem. Patient also reports that her left foot pain has been going on for couple weeks. Patient denies any recent injuries. Patient reports she's never followed up. MD Complaint: extremity pain, extremity swelling Location: left, right, lower extremity, other (foot and ankle) History of Same: Yes Improves with: immobilization, elevation Worsens with: walking - Related Data Home Medications Medication Instructions Recorded Confirmed Last Taken Levothyroxine [Synthroid] 100 mcg PO QAM 04/24/18 04/24/18 04/24/18 Meloxicam 15 mg PO DAILY PRN 04/24/18 04/24/18 04/24/18 Previous Rx's Medication Instructions Recorded Last Taken Type Dicyclomine [Bentyl] 10 mg PO TID PRN #15 capsule 04/25/18 Unknown Rx Pantoprazole [Protonix] 40 mg PO BID #14 tablet 04/25/18 Unknown Rx Ibuprofen [Motrin 800 MG tab] 800 mg PO Q8H PRN #12 tablet 09/26/18 Unknown Rx predniSONE [Deltasone] 40 mg PO QDAY 5 Days #10 tab 02/16/19 Unknown Rx Naproxen [Naprosyn TAB] 500 mg PO BID PRN #30 tablet 07/22/19 Unknown Rx Allergies Allergy/AdvReac Type Severity Reaction Status Date / Time No Known Allergies Allergy Verified 02/16/19 17:00 ED Review of Systems ROS: Stated complaint: RT ANKLE/LFT FOOT PAIN Other details as noted in HPI Comment: All other systems reviewed and negative ED Past Medical Hx - Past Medical History Previous Medical History?: No Hx Hypertension: No Hx CVA: No Hx Heart Attack/AMI: No Hx Congestive Heart Failure: No Hx Diabetes: No Hx Deep Vein Thrombosis: No Hx Pulmonary Embolism: No Hx GERD: No Hx Liver Disease: No Hx Renal Disease: No Hx Sickle Cell Disease: No Hx Arthritis: No Hx Headaches / Migraines: No Hx Seizures: No Hx Kidney Stones: No Hx Psychiatric Treatment: No Hx Asthma: No Hx COPD: No Hx Tuberculosis: No Hx Dementia: No Hx HIV: No Additional medical history: Right knee pain - Surgical History Past Surgical History?: Yes Hx Coronary Stent: No Hx Open Heart Surgery: No Hx Pacemaker: No Hx Internal Defibrillator: No Hx Cholecystectomy: No Hx Appendectomy: No Hx Breast Surgery: No Additional Surgical History: hysterectomy, Right knee arthroscopy - Social History Smoking Status: Never Smoker Substance Use Type: None - Medications Home Medications: Home Medications Medication Instructions Recorded Confirmed Last Taken Type Levothyroxine [Synthroid] 100 mcg PO QAM 04/24/18 04/24/18 04/24/18 History Meloxicam 15 mg PO DAILY PRN 04/24/18 04/24/18 04/24/18 History Dicyclomine [Bentyl] 10 mg PO TID PRN #15 capsule 04/25/18 Unknown Rx Pantoprazole [Protonix] 40 mg PO BID #14 tablet 04/25/18 Unknown Rx Ibuprofen [Motrin 800 MG tab] 800 mg PO Q8H PRN #12 tablet 09/26/18 Unknown Rx predniSONE [Deltasone] 40 mg PO QDAY 5 Days #10 tab 02/16/19 Unknown Rx Naproxen [Naprosyn TAB] 500 mg PO BID PRN #30 tablet 07/22/19 Unknown Rx ED Physical Exam - General Limitations: No Limitations General appearance: alert, in no apparent distress - Head Head exam: Present: atraumatic, normocephalic - Eye Eye exam: Present: normal appearance - ENT ENT exam: Present: mucous membranes moist - Expanded Lower Extremity Exam Right Knee exam: Present: normal inspection, full ROM Ankle exam: Present: full ROM, tenderness, swelling Left Foot/Toe exam: Absent: full ROM, tenderness, swelling Neuro vascular tendon exam: Present: no vascular compromise Gait: Positive: observed and normal - Back Exam Back exam: Present: normal inspection - Neurological Exam Neurological exam: Present: alert, oriented X3 - Skin Skin exam: Present: warm, dry, intact, normal color. Absent: rash ED Course Vital Signs 07/22/19 09:12 Temperature 97.4 F L Pulse Rate 65 Respiratory 18 Rate Blood Pressure 169/89 O2 Sat by Pulse 100 Oximetry ED Medical Decision Making - Medical Decision Making 54-year-old female comes in with right ankle pain and left foot pain and swelling. Patient states that she's had right ankle pain for 7 years and it has flared up over the last 5 months. Patient was recently seen in 02/26/2019 for the same problem. Patient also reports that her left foot pain has been going on for couple weeks. Patient denies any recent injuries. Patient reports she's never followed up. Prescription for naproxen for pain management. Discussed the patient to use a frozen ice bilateral therapy to her left foot to help with the swelling and pain. Also discussed the patient to follow up with the retread technician in orthopedic provider. Critical care attestation.: If time is entered above; I have spent that time in minutes in the direct care of this critically ill patient, excluding procedure time. ED Disposition Clinical Impression: Left foot pain, Right ankle swelling, Chronic pain of right ankle Disposition: [id number] TO HOME OR SELFCARE Is pt being admited?: No Does the pt Need Aspirin: No Condition: Stable Instructions: Arthralgia (ED) Prescriptions: Naproxen [Naprosyn TAB] 500 mg PO BID PRN #30 tablet PRN Reason: pain Referrals: PRIMARY CARE, [Primary Care Provider] - 3-5 Days SHAZIA OSMAN DPM [Referring] - 3-5 Days FREDDIE ROBLERO MD [Staff Physician] - 3-5 Days Forms: Work/School Release Form(ED)
== END 2019-07-22 11:58 | disposition home or self-care (01) ==
LOC: ED 09:04
DX: G89.29 Other chronic pain (principal); M25.471 Effusion, right ankle; M79.672 Pain in left foot; Z98.890 Other specified postprocedural states; Z79.1 Long term (current) use of non-steroidal anti-inflammatories (NSAID); Z79.899 Other long term (current) drug therapy

== ENCOUNTER 2019-07-29 21:32 | Emergency (ER) | payer SELFPAY ==
[2019-07-29] MEDS ORDERED: KETOROLAC 60 MG/2 ML INJ IM ONE (23:02)
[2019-07-29] MEDS ORDERED: HYDROcodone/ACETAMINOPHEN 7.5-325MG TAB PO ONE (23:02)
[2019-07-29] MEDS ORDERED: dexAMETHasone 20 MG/5 ML VIAL IM ONE (23:02)
[2019-07-29] MEDS ORDERED: COLCHICINE 0.6 MG CAP PO ONE (23:02)
--- NOTE | 2019-07-29 23:05 | Event Note ---
ED Screening Note Date of service: 07/29/19 Time: 23:04 ED Screening Note: 54 y/o female comes in for left great tor pain times 2 days. This initial assessment/diagnostic orders/clinical plan/treatment(s) is/are subject to change based on patients health status, clinical progression and re-assessment by fellow clinical providers in the ED. Further treatment and workup at subsequent clinical providers discretion. Patient/guardian urged not to elope from the ED as their condition may be serious if not clinically assessed and managed. Initial orders include:
[2019-07-29] MEDS ORDERED: HYDROcodone/ACETAMINOPHEN 7.5-325MG TAB ONE (23:06)
[2019-07-29] MEDS ORDERED: KETOROLAC 60 MG/2 ML INJ ONE (23:06)
--- NOTE | 2019-07-30 01:49 | XRay Report ---
LEFT FOOT 3 VIEWS INDICATION / CLINICAL INFORMATION: left toe/foot pain COMPARISON: None available. FINDINGS: BONES / JOINT(S): No acute fracture or subluxation. Mild degenerative change. Moderate calcaneal spur ring at the site of attachment of the plantar aponeurosis and Achilles tendon. SOFT TISSUES: Diffuse swelling. ADDITIONAL FINDINGS: None. Signer Name: Richi Ragland MD Signed: 07/30/2019 1:44 AM Workstation Name: [id number]
--- NOTE | 2019-07-30 02:18 | Emergency Department Report ---
ED Lower Extremity HPI - General Chief Complaint: Extremity Problem,Nontraumatic Stated Complaint: LT FOOT PAIN Time Seen by Provider: 07/29/19 23:01 Source: patient Mode of arrival: Ambulatory Limitations: No Limitations - History of Present Illness Initial Comments: This is a 54-year-old female nontoxic, well nourished in appearance, no acute signs of distress presents to the ED with c/o of left great toe pain and swelling x1 day. Patient denies any trauma. Patient denies any numbness, tingling, fever, chills, nausea, vomiting, chest pain, shortness of breath, headache, stiff neck. Patient denies any joint swelling or joint redness. Patient denies decreased range of motion. Patient stated has decreased gait due to pain. Patient denies any allergies. MD Complaint: other (left great toe pain) -: days(s) (1) Injury: Toes: Left Severity: mild Severity scale (0 -10): 8 Improves With: immobilization Worsens With: weight bearing, movement, palpation Associated Symptoms: swelling, able to partially bear weight, ambulatory. denies: snap/pop sensation, numbness, tingling, unable to bear weight - Related Data Home Medications Medication Instructions Recorded Confirmed Last Taken Levothyroxine [Synthroid] 100 mcg PO QAM 04/24/18 04/24/18 04/24/18 Meloxicam 15 mg PO DAILY PRN 04/24/18 04/24/18 04/24/18 Previous Rx's Medication Instructions Recorded Last Taken Type Dicyclomine [Bentyl] 10 mg PO TID PRN #15 capsule 04/25/18 Unknown Rx Pantoprazole [Protonix] 40 mg PO BID #14 tablet 04/25/18 Unknown Rx Ibuprofen [Motrin 800 MG tab] 800 mg PO Q8H PRN #12 tablet 09/26/18 Unknown Rx predniSONE [Deltasone] 40 mg PO QDAY 5 Days #10 tab 02/16/19 Unknown Rx Naproxen [Naprosyn TAB] 500 mg PO BID PRN #30 tablet 07/22/19 Unknown Rx Acetaminophen/Codeine [Tylenol 1 tab PO Q6H PRN #12 tab 07/30/19 Unknown Rx /Codeine # 3 tab] Prednisone [predniSONE 10 mg 10 mg PO .TAPER #1 tab.ds.pk 07/30/19 Unknown Rx (6-Day Pack, 21 Tabs)] Allergies Allergy/AdvReac Type Severity Reaction Status Date / Time No Known Allergies Allergy Verified 02/16/19 17:00 ED Review of Systems ROS: Stated complaint: LT FOOT PAIN Other details as noted in HPI Constitutional: denies: chills, fever Eyes: denies: eye pain, eye discharge, vision change ENT: denies: ear pain, throat pain Respiratory: denies: cough, shortness of breath, wheezing Cardiovascular: denies: chest pain, palpitations Endocrine: no symptoms reported Gastrointestinal: denies: abdominal pain, nausea, diarrhea Genitourinary: denies: urgency, dysuria, discharge Musculoskeletal: denies: back pain, joint swelling, arthralgia Skin: denies: rash, lesions Neurological: denies: headache, weakness, paresthesias Psychiatric: denies: anxiety, depression Hematological/Lymphatic: denies: easy bleeding, easy bruising ED Past Medical Hx - Past Medical History Hx Hypertension: No Hx CVA: No Hx Heart Attack/AMI: No Hx Congestive Heart Failure: No Hx Diabetes: No Hx Deep Vein Thrombosis: No Hx Pulmonary Embolism: No Hx GERD: No Hx Liver Disease: No Hx Renal Disease: No Hx Sickle Cell Disease: No Hx Arthritis: No Hx Headaches / Migraines: No Hx Seizures: No Hx Kidney Stones: No Hx Psychiatric Treatment: No Hx Asthma: No Hx COPD: No Hx Tuberculosis: No Hx Dementia: No Hx HIV: No Additional medical history: Right knee pain - Surgical History Hx Coronary Stent: No Hx Open Heart Surgery: No Hx Pacemaker: No Hx Internal Defibrillator: No Hx Cholecystectomy: No Hx Appendectomy: No Hx Breast Surgery: No Additional Surgical History: hysterectomy, Right knee arthroscopy - Social History Smoking Status: Never Smoker Substance Use Type: None - Medications Home Medications: Home Medications Medication Instructions Recorded Confirmed Last Taken Type Levothyroxine [Synthroid] 100 mcg PO QAM 04/24/18 04/24/18 04/24/18 History Meloxicam 15 mg PO DAILY PRN 04/24/18 04/24/18 04/24/18 History Dicyclomine [Bentyl] 10 mg PO TID PRN #15 capsule 04/25/18 Unknown Rx Pantoprazole [Protonix] 40 mg PO BID #14 tablet 04/25/18 Unknown Rx Ibuprofen [Motrin 800 MG tab] 800 mg PO Q8H PRN #12 tablet 09/26/18 Unknown Rx predniSONE [Deltasone] 40 mg PO QDAY 5 Days #10 tab 02/16/19 Unknown Rx Naproxen [Naprosyn TAB] 500 mg PO BID PRN #30 tablet 07/22/19 Unknown Rx Acetaminophen/Codeine [Tylenol 1 tab PO Q6H PRN #12 tab 07/30/19 Unknown Rx /Codeine # 3 tab] Prednisone [predniSONE 10 mg 10 mg PO .TAPER #1 tab.ds.pk 07/30/19 Unknown Rx (6-Day Pack, 21 Tabs)] ED Physical Exam - General Limitations: No Limitations General appearance: alert, in no apparent distress - Head Head exam: Present: atraumatic, normocephalic - Extremities Exam Extremities exam: Present: normal inspection, full ROM, tenderness, normal capillary refill. Absent: joint swelling, calf tenderness - Expanded Lower Extremity Exam Left Hip exam: Present: normal inspection, full ROM. Absent: tenderness, swelling Upper Leg exam: Present: normal inspection, full ROM. Absent: tenderness, swelling Knee exam: Present: normal inspection, full ROM. Absent: tenderness, swelling Lower Leg exam: Present: normal inspection, full ROM. Absent: tenderness, swelling, abrasion, laceration, ecchymosis, deformity, crepidus, dislocation, erythema, palpable cord, Lizzy's sign Ankle exam: Present: normal inspection, full ROM. Absent: tenderness, swelling, abrasion, laceration, ecchymosis, deformity, crepidus, dislocation, erythema, anterior draw sign Foot/Toe exam: Present: normal inspection, full ROM, tenderness, swelling. Absent: abrasion, laceration, ecchymosis, deformity, crepidus, dislocation, erythema, amputation, puncture wound, foreign body, calcaneal tenderness, tenderness at base of 5th metatarsal, nail avulsion, subungual hematoma Neuro vascular tendon exam: Present: no vascular compromise Gait: Positive: observed and limited by pain 1 - pain and swelling - Back Exam Back exam: Present: normal inspection, full ROM - Neurological Exam Neurological exam: Present: alert, oriented X3, normal gait - Psychiatric Psychiatric exam: Present: normal affect, normal mood - Skin Skin exam: Present: warm, dry, intact, normal color. Absent: rash ED Course Vital Signs 07/29/19 23:02 Temperature 98.2 F Pulse Rate 77 Respiratory 20 Rate O2 Sat by Pulse 97 Oximetry - Reevaluation(s) Reevaluation #1: 07/30/19 02:16 Patient is speaking in full sentences with no signs of distress noted. ED Lower Extremity MDM - Medical Decision Making This is a 54-year-old female that presents with gout. Patient is stable and was examined by me. I referred patient to an orthopedic doctor for further evaluation for possible MRI. X-ray has been obtained and dictated by the radiologist. Patient is notified of the x-ray report with noted by the patient. Patient does have normal gait with no tenderness and no joint swelling. No ecchymosis. no joint redness or swelling. Not warm to touch. No signs of cellulites present. Patient is discharged with prednisone and Tylenol with codeine for pain. At time of discharge, the patient does not seem toxic or ill in appearance. No acute signs of distress noted. Patient agrees to discharge treatment plan of care. No further questions noted by the patient. Critical care attestation.: If time is entered above; I have spent that time in minutes in the direct care o f this critically ill patient, excluding procedure time. ED Disposition Clinical Impression: Gout Qualifiers: Gout site: toe Gout etiology: unspecified cause Chronicity: acute Laterality: left Qualified Code(s): M10.9 - Gout, unspecified Disposition: DC- TO HOME OR SELFCARE Is pt being admited?: No Does the pt Need Aspirin: No Condition: Stable Instructions: Acute Gouty Arthritis (ED), Acetaminophen/Codeine (By mouth) Additional Instructions: Follow-up with a orthopedic doctor in 3-5 days or if symptoms worsen and continue return to emergency room as soon as possible. Do not operate any machinery while taking Tylenol with codeine as this may cause drowsiness. Prescriptions: Prednisone [predniSONE 10 mg (6-Day Pack, 21 Tabs)] 10 mg PO .TAPER #1 tab.ds.pk Acetaminophen/Codeine [Tylenol /Codeine # 3 tab] 1 tab PO Q6H PRN #12 tab PRN Reason: Pain , Severe (7-10) Referrals: RUPERTO EDWARDS [Primary Care Provider] - 3-5 Days PRIMARY CAREMD [Referring] - 3-5 Days FREDDIE ROBLERO MD [Staff Physician] - 3-5 Days [facility] [Outside] - 3-5 Days Forms: Work/School Release Form(ED)
== END 2019-07-30 02:33 | disposition home or self-care (01) ==
LOC: ED 21:32
DX: M10.9 Gout, unspecified (principal); Z90.710 Acquired absence of both cervix and uterus; Z98.890 Other specified postprocedural states; Z79.899 Other long term (current) drug therapy
CPT/HCPCS: 73630; 96372; 99283; J1100; J1885